=== PATIENT | male | born 1940 | race Asian ===

== ENCOUNTER 2018-07-12 06:40 | Day surgery (SDC) | payer MEDICARE ==
[2018-07-12] VITALS (9 sets, daily range): BP systolic 105–135; BP diastolic 50–74
[~2018-07-12] VITALS: Ht 167.6 cm; Wt 65.8 kg
[~2018-07-12 06:40] MED LIST: ASPIRIN 81 LOW81 MG PO; LOSARTAN POT50 MG PO
[2018-07-12 07:27] LABS: HEMATOCRIT 51.2 % (39.0-50.0); IMMATURE GRANULOCYTES 0.4 % (0.0-5.0); MEAN CELL VOLUME 96.8 fL CALC (80.0-100.0); MEAN CORPUSCULAR HGB 32.1 pG CALC (26.0-32.0); MEAN CORPUSCULAR HGB CONC 33.2 g/L CALC (32.0-36.0); NEUT# 3.53 thou/uL (1.82-7.42); RED BLOOD COUNT 5.29 mill/uL (4.70-6.10)
[2018-07-12 07:31] LABS: URINE BILIRUBIN - DIPSTICK NEGATIVE (NEGATIVE); URINE BLOOD DIPSTICK LARGE (NEGATIVE); URINE COLOR YELLOW; URINE GLUCOSE - DIPSTICK NEGATIVE (NEGATIVE); URINE KETONE NEGATIVE (NEGATIVE); URINE LEUK ESTERASE NEGATIVE (NEGATIVE); URINE PROTEIN - DIPSTICK TRACE mg/dL (NEG-TRACE); URINE UROBILINOGEN - DIPSTICK 0.2 E.U./dL (0.2)
[2018-07-12 07:32] LABS: URINE CLARITY CLEAR
[2018-07-12 07:35] LABS: ALBUMIN 4.3 g/dL (3.2-5.0); ALKALINE PHOSPHATASE 75 u/l (38-126); ANION GAP 13 (6-22 (CALC)); BILIRUBIN, TOTAL 0.9 mg/dL (0.0-1.4); BUN 15 mg/dL (8-23); BUN/CREATININE RATIO 17 (12-20 (CALC)); CARBON DIOXIDE 29 mmol/l (22-30); CHLORIDE 104 mmol/l (95-108); CREATININE 0.9 mg/dL (0.7-1.3); GFR > 60 ML/MIN (>=60 (CALC)); GFR FOR AFR.AMER. > 60 ML/MIN (>=60 (CALC)); SGOT/AST 19 u/l (19-48); SGPT/ALT 30 u/l (11-66); SODIUM 143 mmol/l (137-146); TOTAL PROTEIN 7.3 g/dL (6.3-8.2)
[2018-07-12 07:39] LABS: URINE NITRITE - DIPSTICK NEGATIVE (Negative)
--- NOTE | 2018-07-12 13:20 | NUR ---
PT ARRIVED TO [facility] VIA BED ACCOMPANIED BY OR STAFF X 2. PT DROWSY, BUT AWAKE. ALERT AND ORIENTED TO PERSON, PLACE, ADN TIME, DISORIENTED TO SITUATION SLIGHTLY. STATING REPEATEDLY "AM I DREAMING? I NEED TO PEE." PT'S AT BEDSIDE. PT. REASSURED OF CATHETER PRESENCE AND INDICATION. CBI RUNNING, 3 WAY CATHETER DRAINING TORRES RED DRAINAGE. BAG AT END OF BED FOR TRACTION, TUBING SECURED TO LEG ALSO FOR TRACTION. PT DENIES PAIN. PLAN OF CARE REVIEWED. FALL PRECAUTIONS REINFORCED. BED ALARM SET FOR SAFETY. CALL LIGHT REVIEWED AND IN REACH.
--- NOTE | 2018-07-12 14:30 | NUR ---
REGULAR DIET PROVIDED TO PT. PER ORDER. PT TOLERATED 50% OF LUNCH. DENIES NAUSEA. NO PAIN. PT. DROWSY. FALL PRECAUTIONS REINFORCED. SCD'S IN PLACE TO BILATERAL LEGS. CBI IN PLACE, KING DRAINING TORRES RED FLUID. WILL CONTINUE TO MONITOR.
--- NOTE | 2018-07-12 15:22 | NUR ---
OR STAFF AT BEDSIDE. PT. SLEEPING. NO CHANGE IN DRAINAGE, STILL TORRES RED. NO CLOTS NOTED. CBI FLOWING FREELY. TRACTION IN PLACE. PT'S AT BEDSIDE.
--- NOTE | 2018-07-12 16:07 | NUR ---
PT SLEEPING AT THIS TIME. CBI RUNNING, DRAINING TORRES RED. 2 LONG CLOTS NOTED IN KING BAG. AT BEDSIDE.
--- NOTE | 2018-07-12 17:02 | NUR ---
PT. STILL SLEEPING. CBI RUNNING, DRAINING CLEAR DRAINAGE AT THIS TIME. CALL LIGHT WITHIN REACH. HAND COMPOSITOR AT BEDSIDE TO MAINTAIN CBI FLUIDS ADN EMPTY KING BAG.
--- NOTE | 2018-07-12 17:50 | NUR ---
PT ASSISTED TO SITTING UPRIGHT POSITION. EATING DINNER. DENIES PAIN. CBI RUNNING, DRAINING CLEAR, WITH OCCASIONAL REDNESS. NO COMPLAINTS AT THIS TIME.
--- NOTE | 2018-07-12 18:00 | NUR ---
LEG TRACTION TO KING REMOVED PER DR. AU. KING BAG DANGLING OFF END OF BED FOR TRACTION. DRAINAGE CLEAR. PER DR. AU IF DRAINAGE REMAINS CLEAR, IRRIGATION MAY BE TITRATED STARTING AT 0000 AND TRACTION AT END OF BED REMOVED.
--- NOTE | 2018-07-12 18:53 | NUR ---
REPORT GIVEN TO GUILLERMO BIANCHI. PT DENIES PAIN. PT'S AT BEDSIDE. CBI RUNNING, TRACTION AT END OF BED IN PLACE. DRAINAGE REMAINS CLEAR. IS AT BEDSIDE. PT AND SPOUSE EDUCATED ON INDICATION AND USE. 2000 ML INCENTIVE VOLUME ACHIEVED.
--- NOTE | 2018-07-12 19:15 | NUR ---
PT SITTING UP IN BED WATCHING TV. IN ROOM. PT IS ALERT AND ORIENTED X3. PERRLA. SHIFT ASSESSMENT COMPLETED AT THIS TIME. IV PATENT X1. PLAN OF CARE REVIEWED WITH PT. CALL LIGHT IN REACH. WILL CONTINUE TO MONTIOR
--- NOTE | 2018-07-12 20:00 | NUR ---
NOTIFIED DR GONZALES THAT PT NEEDED HOME MED [place]. PT STATES THAT HE TAKES 25MG. HE NO LONGER TAKES 50MG. [place] ORDERED 25MG.
--- NOTE | 2018-07-12 21:54 | NUR ---
CBI CONTINUES. DRAINING CLEAR PINK. PT RESTING WITH EYES CLOSED. SPOUSE IN ROOM. WILL CONTINUE TO MONITOR
--- NOTE | 2018-07-12 23:49 | NUR ---
PT RESTING IN BED WITH EYES CLOSED. SPOUSE IN ROOM. CBI CONTINUES AT A SLOWER RATE. CONTINUES TO RUN CLEAR. NO CLOTS NOTED. CALL LIGHT IN REACH. WILL CONTINUE TO MONITOR
--- NOTE | 2018-07-13 03:39 | NUR ---
PT RESTING IN BED WITH EYES CLOSED. RESP ARE EVEN AND UNLABOTRED. SPOUSE IN ROOM. CBI CONTINUES AT A SLOW RATE AND CLEAR DRAINAGE. CALL LIGHT IN REACH. WILL CONTINUE TO MONITOR
--- NOTE | 2018-07-13 04:20 | NUR ---
lab into room to draw am labs
[2018-07-13 04:30] VITALS: BP 103/54
[2018-07-13 05:05] LABS: IMMATURE GRANULOCYTES 0.4 % (0.0-5.0); MEAN CELL VOLUME 97.9 fL CALC (80.0-100.0); MEAN CORPUSCULAR HGB 32.7 pG CALC (26.0-32.0); MEAN CORPUSCULAR HGB CONC 33.4 g/L CALC (32.0-36.0); NEUT# 11.61 thou/uL (1.82-7.42); RED BLOOD COUNT 3.88 mill/uL (4.70-6.10); RED CELL DISTRI WIDTH 12.2 % (11.5-15.5)
[2018-07-13 05:06] LABS: HEMOGLOBIN 12.7 g/dl (14.0-18.0)
[2018-07-13 05:31] LABS: ALKALINE PHOSPHATASE 45 u/l (38-126); BILIRUBIN, TOTAL 0.8 mg/dL (0.0-1.4); BUN 25 mg/dL (8-23); BUN/CREATININE RATIO 19 (12-20 (CALC)); CARBON DIOXIDE 28 mmol/l (22-30); CHLORIDE 100 mmol/l (95-108); CREATININE 1.3 mg/dL (0.7-1.3); GFR 53 ML/MIN (>=60 (CALC)); GFR FOR AFR.AMER. > 60 ML/MIN (>=60 (CALC)); MAGNESIUM 1.8 mg/dL (1.6-2.3); SGOT/AST 20 u/l (19-48); SGPT/ALT 20 u/l (11-66); SODIUM 138 mmol/l (137-146)
[2018-07-13 05:32] LABS: ALBUMIN 3.3 g/dL (3.2-5.0); ANION GAP 15 (6-22 (CALC)); POTASSIUM 5.1 mmol/l (3.5-5.1); TOTAL PROTEIN 5.7 g/dL (6.3-8.2)
--- NOTE | 2018-07-13 06:12 | NUR ---
DR AU AT BEDSIDE. CBI STOPPED AT THIS TIME
[2018-07-13] MEDS ORDERED: KEFLEX500 M1 PO (06:35)
[2018-07-13] MEDS ORDERED: NEURONTIN400 MG PO (06:35)
[2018-07-13] MEDS ORDERED: TAMSULOSIN0.4 MG PO (06:35)
[2018-07-13] MEDS ORDERED: VESICARE5 MG PO (06:35)
[2018-07-13] MEDS ORDERED: AZO TABS95 MG PO (06:35)
--- NOTE | 2018-07-13 07:42 | NUR ---
ENTERED ROOM, INTRODUCED SELF TO PT AND . DISCUSSED POC, PT AND IN AGREEMENT. CONCERNED DUE TO NO BCI FLOWING, CBI TUBING REMAINS CONNECTED TO PT AND BAG 40 CONNECTED AND BAG 41 NEXT. 300CC REMAINS IN BAG 40, CBI CONTINUED OF REMAINING 40 AND STARTED 41. CBI CLEAR TITRATED DOWN TO STOP, COMPLETED CBI AND CHANGED TO LEG BAG, AT BEDSIDE. WILL WAIT FOR PT TO VOID PRIOR TO DISCHARGE. CALL LIGHT IN REACH,CONTINUE TO MONITOR.
[2018-07-13 08:22] VITALS: BP 85/51
--- NOTE | 2018-07-13 08:22 | NUR ---
PT STANDING AT BEDSIDE, STATES HE WOULD RATHER STAND DUE TO DISCOMFORT. BP OBTAINED 84/51 PT DOES NOT C/O DIZZYNESS. HAD ATTEMPTED TO AMBULATE WITH BUT WILL WAIT FOR BETTER BP.NO SIGNS OF DISTRESS NOTED, RESP EVEN AND UNLABORED. CALL LIGHT IN REACH,CONTINUE TO MONITOR.
[2018-07-13 08:51] VITALS: BP 142/77
--- NOTE | 2018-07-13 09:20 | NUR ---
PT SITTING IN RECLINER AT BEDSIDE, C/O BLADDER DISCOMFORT. PT MEDICATED WITH BENTYL IM, PT ASSISTED TO BED AND BLADDER IRRIGATED WITH 100CC OF NS. PT TOLERATED WELL.NOTED SMALL CLOT REMOVED, AND PT RELEASED THE FLUID PLACED THROUGH IRRIGATION. STATES HE FEELS RELIEF, PT AMBULATED TO RECLINER. AND PT REQUEST TO STAY UNTIL PT FLOWING URINE WITHOUT CLOTS. INFORMED PT THAT WOULD BE BEST. WILL CONTINUE TO MONITOR FOR BLOOD CLOTS AND IRRIGATE NECESSARY. CALL LIGHT IN REACH, CONTINUE TO MONITOR.
--- NOTE | 2018-07-13 10:44 | NUR ---
CALLED AND NOTIFIED OF CLOTS AFTER IRRIGATION, ORDERED TO INITIATE ANOTHER 3000CC BAG OF CBI. MONITOR AFTER BAG AND DC IF NO ISSUES PERSIST. PT AND IN AGREEMENT. BAG #[phone] INITIATED, CALL LIGHT IN REACH,CONTINUE TO MONITOR.
--- NOTE | 2018-07-13 12:05 | NUR ---
Discharge instructions given. Patient verbalizes understanding of same. Discharged in stable condition via Wheelchair to Home with significant other. All belongings sent with pt.
== END 2018-07-13 12:10 ==
LOC: MS2 06:40 → ORM 06:40 → MS2 09:25 → EDUNIT# 16:15 → EDSTATUS 16:15 → MS2 16:15 → ORM 07-13 12:10 → MS2 07-13 12:10
PROVIDERS: ATTEND Urology
PROC: 0V508ZZ Destruction of Prostate, Via Natural or Artificial Opening Endoscopic (ICD-10-PCS; principal; 2018-07-12)
DX: N40.1 Benign prostatic hyperplasia with lower urinary tract symptoms (principal); R35.1 Nocturia; R39.12 Poor urinary stream; R31.0 Gross hematuria; I10 Essential (primary) hypertension
CPT/HCPCS: 0421T; C1769; J2270